=== PATIENT | female | born 1990 | race Caucasian/White ===

== ENCOUNTER 2018-12-03 22:13 | Emergency (ER) | payer SELFPAY ==
[~2018-12-03] VITALS: Ht 160 cm; Wt 59.9 kg
[2018-12-03 22:17] VITALS: Ht 160 cm; Wt 59.9 kg
[2018-12-04] MEDS ORDERED: LORA1TAB PO (00:42)
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
[2018-12-04] MEDS ORDERED: LORAZEPAM 2 MG INJ IM ONE (01:00)
[2018-12-04 01:55] VITALS: BP 128/73; PULSE 86; RESP 18
== END 2018-12-04 01:55 | disposition home or self-care (01) ==
LOC: FTE 22:13
DX: F41.9 Anxiety disorder, unspecified (principal)
CPT/HCPCS: 93005; 96372; 99284; J2060